=== PATIENT | male | born 1960 | race Caucasian/White ===

== ENCOUNTER → 2018-06-15 | Outpatient (CLI) | payer OTHER ==
[~2018-06-15] MED LIST: COLACE100 MG PO; HYDROCODONE-AP1 EAC6 PO; LIPITOR 20 MG T20 M1 PO; OXYCODONE HCL 55 MG PO; XARELTO20 MG PO
== END ==
LOC: RAD 13:44
DX: R06.00 Dyspnea, unspecified (principal); R06.02 Shortness of breath; Z96.652 Presence of left artificial knee joint

== ENCOUNTER → 2020-07-22 | Outpatient (CLI) | payer OTHER ==
[~2020-07-22] MED LIST changes: +BENADRYL25 MG PO; +METAMUCIL1 EAC1 PO; +MULTI VITAMIN1 EACH PO; +NORCO 5-325 TA1 EACH PO; +ONDANSETRON HCL4 M2 PO; +SENNA8.6 MG PO; +TYLENOL325 M1 PO; +VITAMIN D1000 UNI1 PO
== END ==
LOC: RAD 12:16
PROVIDERS: ATTEND Internal Medicine
DX: M95.4 Acquired deformity of chest and rib (principal)